=== PATIENT | male | born 2005 | race Hispanic/Latino ===

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

== ENCOUNTER 2023-01-28 12:52 | Outpatient (CLI) | payer OTHER ==
[~2023-01-28 12:52] MED LIST: CLONIDINE0.3 MG PO; FLUOXETINE60 MG PO; FOCALIN XR30 MG PO; FOCALIN5 MG PO
== END 2023-01-28 21:32 | disposition home or self-care (01) ==
LOC: RAD 12:52
PROVIDERS: ATTEND Internal Medicine
DX: R22.0 Localized swelling, mass and lump, head (principal)